=== PATIENT | male | born 1960 | race Caucasian/White ===

== ENCOUNTER 2018-10-10 11:11 | Day surgery (SDC) | payer BC, OTHER ==
[~2018-10-10 11:11] MED LIST: Propofol 200 MG/20 ML SDV ONE
[2018-10-10] MEDS ORDERED: Lactated Ringers 1,000 ML IV SCH (11:15)
[2018-10-10] MEDS ORDERED: Sodium Chloride 0.9% 10 ML Syringe FLUSH PRN (11:15)
--- NOTE | 2018-10-10 11:42 | PCM.HPR ---
H & P Addendum review - H & P Addendum Review Date of Original H & P: 09/20/18 Date Reviewed: 10/10/18 Time Reviewed: 11:42 Patient was Examined: No Changes
[2018-10-10] MEDS ORDERED: Propofol 200 MG/20 ML SDV ONE (11:50)
--- NOTE | 2018-10-10 12:10 | PCM.OPNOTE ---
- General Post-Op/Procedure Note Date of Surgery/Procedure: 10/10/18 Operative Procedure(s): Colonoscopy Findings: Normal Pre Op Diagnosis: Pos Fit Post-Op Diagnosis: Same Anesthesia Technique: MAC Primary Surgeon: Memo Hinton Complications: None Condition: Good
--- NOTE | 2018-10-11 08:46 | OR ---
Date of Procedure: 10/10/2018 PREOPERATIVE DIAGNOSIS: Positive fecal immunochemical test. POSTOPERATIVE DIAGNOSIS: Normal colonoscopy. PROCEDURE: Colonoscopy. ANESTHESIA: IV sedation. DESCRIPTION OF PROCEDURE: The patient was brought to the procedure room where he was placed on his left side and IV sedation administered. Digital rectal exam was performed which was normal. Colonoscope inserted and advanced to the level of the cecum with minimal difficulty getting through the ascending colon requiring some pressure on the abdomen. Cecum was reached and confirmed by identifying the appendiceal lumen and ileocecal valve. Prep was good and surfaces were well visualized. Upon withdrawing the scope, the ascending, transverse, and descending colon were normal in appearance. Sigmoid colon and rectum were normal. Retroflexion was normal. Air was removed. The scope withdrawn. The patient tolerated the procedure well and returned to Recovery in stable condition. Recommend routine colon screening again in 10 years. MANUELITO YI MD /[id number]
== END 2018-10-10 13:20 | disposition home or self-care (01) ==
LOC: LL.SDS 11:11
PROVIDERS: ATTEND Surgery
DX: R19.5 Other fecal abnormalities (principal); G47.33 Obstructive sleep apnea (adult) (pediatric); I10 Essential (primary) hypertension; E78.5 Hyperlipidemia, unspecified; N40.0 Benign prostatic hyperplasia without lower urinary tract symptoms; Z79.899 Other long term (current) drug therapy; Z79.82 Long term (current) use of aspirin; Z99.89 Dependence on other enabling machines and devices; Z88.0 Allergy status to penicillin; Z87.891 Personal history of nicotine dependence; Z86.73 Personal history of transient ischemic attack (TIA), and cerebral infarction without residual deficits
CPT/HCPCS: 45378; J2704; J7120